=== PATIENT | female | born 1995 | race Caucasian/White ===

== ENCOUNTER 2016-08-23 11:01 | Emergency (ER) | payer BC, OTHER ==
[~2016-08-23] VITALS: Ht 180.3 cm; Wt 133.5 kg
[~2016-08-23 11:01] MED LIST: BCPILLS PO
[2016-08-23 11:10] VITALS: TEMP 36.9; Ht 180.3 cm; Wt 133.5 kg
[2016-08-23] MEDS ORDERED: SODIUM CHLORIDE 0.9% 1000ML 1,000 ML IV ONE (12:30)
[2016-08-23 12:45] LABS: BASO % 0.3 %; BASO ABS # 0.03 K/uL (0-0.2); COMPLETE YES; EOS % 1.9 %; HEMATOCRIT 33.6 % (37-47); IG% 0.2 %; LYMPH % 23.8 %; LYMPH ABS # 2.25 K/uL (1.2-3.4); MEAN CELL VOLUME 70.9 fL (80-100); MEAN CORPUSCULAR HEMOGLOBIN 21.9 pg (25-34); MEAN PLATELET VOLUME 8.7 fL (7.4-10.4); MONO % 7.2 %; NEUT % 66.6 %; PLATELET COUNT 452 K/uL (130-400); RED BLOOD COUNT 4.74 M/uL (4.2-5.4); WHITE BLOOD COUNT 9.46 K/uL (4.8-10.8)
[2016-08-23 13:01] LABS: BUN/CREATININE RATIO 20.6 (10-20); CALCIUM 8.9 mg/dl (8.5-10.1); CREATININE 0.67 mg/dl (0.60-1.20)
--- NOTE | 2016-08-23 13:27 | DIAGNOSTIC IMAGING REPORT ---
CHEST 2 VIEWS ROUTINE CLINICAL HISTORY: syncope, cough COMPARISON STUDY: No previous studies for comparison. FINDINGS: The cardiac and mediastinal contours are normal. There is no evidence of focal pulmonary consolidation. There is no evidence of failure. No pleural effusions are visualized.[ IMPRESSION: No active disease in the chest. Electronically signed by: Roosevelt Wilson M.D. 08/23/2016 1:26 PM Dictated Date/Time: 08/23/2016 1:25 PM
[2016-08-23 13:33] LABS: URINE APPEARANCE CLEAR (CLEAR); URINE BILIRUBIN NEG (NEG); URINE COLOR YELLOW; URINE NITRITE NEG (NEG); URINE PH 6.5 (4.5-7.5); URINE SPECIFIC GRAVITY 1.019 (1.000-1.030); UROBILINOGEN NEG (NEG)
[2016-08-23 13:36] LABS: MANUAL MICROSCOPIC REQUIRED? NO; REVIEW REQ? NO
[2016-08-23 13:55] VITALS: BP 123/67; PULSE 81; O2SAT 100
--- NOTE | 2016-08-23 20:42 | EMERGENCY ROOM VISIT NOTE ---
ED Visit Note First contact with patient: 12:13 Chief Complaint: I passed out. History of Present Illness: Ms. Peacock is a 21-year-old white female who ambulates into the ED complaining of a possible syncopal episode. Patient denies any significant past medical history in reports she's been feeling well over the last few days. Patient reports she was standing up on the bus going to school this morning and had a syncopal episode. She reports just prior to the syncopal episode she noted some increasing tunnellike vision changes as well as hearing changes and then she was on the floor. She reports she had a transient loss of consciousness and when she attempted to stand up had a second syncopal episode. After her second syncopal episode she was offered a chair was sitting in chair and since that time she reports she has been feeling well and is not having any complaints. She denies fevers, chills, sweats, skin eruptions, skin color changes, dizziness , lightheadedness, recent head trauma, visual changes, hearing changes, difficulty speaking, difficulty swallowing, difficulty ambulating/morning body movements, neck pain, back pain, chest pain, shortness of breath, palpitations, previous clots, claudication, cramping, recent surgery/inactivity/extended travel, estrogen and tobacco use, abdominal pain, nausea, vomiting, diarrhea, constipation, rectal bleeding, black/tarry stools, flank pain, urinary symptoms , hematuria, vaginal discharge; she is currently menstruating and reports this is normal duration and intensity, extremity weakness/numbness/tingling. Review of Systems: As noted above in history of present illness. At least body systems were reviewed and found to be negative as noted above. Past Medical History: Patient denies. Current Medications: Patient denies. Allergies to Medications: Patient denies. Social History: Patient is currently University student; patient feels safe in her home environment; she denies tobacco and alcohol use. Physical Examination: Vital Signs: Date Time Temp Pulse Resp B/P Pulse Ox O2 Delivery O2 Flow Rate FiO2 08/23/16 13:55 81 16 123/67 100 Room Air 08/23/16 13:09 96 16 146/81 96 Room Air 08/23/16 12:55 86 18 122/88 86 140/69 100 164/113 08/23/16 11:10 36.9 79 18 128/82 99 Room Air GENERAL: 21-year-old female in no acute distress, nontoxic-appearing, afebrile and hemodynamically stable. NEUROLOGICAL: Awake, alert and oriented to person, place and time. Answering questions appropriately and following commands. Normal gait. Good hand eye coordination. No focal motor sensory deficits. Romberg test negative. Pronator drift test negative. Cranial nerves II through XII grossly intact. Normal rapid all movements of the hands and fingers. Good short-term and long- term recall. SKIN: Warm, dry and pink. No soft tissue eruptions or trauma noted. HEENT: Atraumatic and normocephalic. PERRLA. EOMI without nystagmus. Sclera white and conjunctiva pink. No drainage from naris. No malocclusion. Airway pain. Pharynx is nonerythematous or edematous. Speech normal. No lymphadenopathy. Trachea midline. No jugular venous distention. No carotid bruits. BACK: No tenderness over the bony cervical, thoracic and lumbar spine. No CVA tenderness. THORAX: Lungs sounds are clear to auscultation and equal bilaterally with symmetrical chest wall. No wheezing, rales or rhonchi. No crepitus, tenderness , subcutaneous air or deformities noted. HEART: Regular rate and rhythm. No gallops, rubs or murmurs are appreciated. ABDOMEN: Obese, soft and nontender. Positive bowel sounds in all quadrants. No guarding, rigidity or organomegaly. EXTREMITIES: Moves all extremities well on command and with purpose. All distal neurovascular statuses are intact and equal bilaterally. No calf tenderness or cords. ED Course: Patient is assessed as noted above. Laboratory Testing: Test 08/23/16 12:35 08/23/16 13:10 Range/Units White Blood Count 9.46 4.8-10.8 K/uL Red Blood Count 4.74 4.2-5.4 M/uL Hemoglobin 10.4 12.0-16.0 g/dL Hematocrit 33.6 37-47 % Mean Corpuscular Volume 70.9 80-100 fL Mean Corpuscular Hemoglobin 21.9 25-34 pg Mean Corpuscular Hemoglobin Concent 31.0 32-36 g/dl Platelet Count 452 130-400 K/uL Mean Platelet Volume 8.7 7.4-10.4 fL Neutrophils (%) (Auto) 66.6 % Lymphocytes (%) (Auto) 23.8 % Monocytes (%) (Auto) 7.2 % Eosinophils (%) (Auto) 1.9 % Basophils (%) (Auto) 0.3 % Neutrophils # (Auto) 6.30 1.4-6.5 K/uL Lymphocytes # (Auto) 2.25 1.2-3.4 K/uL Monocytes # (Auto) 0.68 0.11-0.59 K/uL Eosinophils # (Auto) 0.18 0-0.5 K/uL Basophils # (Auto) 0.03 0-0.2 K/uL RDW Standard Deviation 43.1 36.4-46.3 fL RDW Coefficient of Variation 16.6 11.5-14.5 % Immature Granulocyte % (Auto) 0.2 % Immature Granulocyte # (Auto) 0.02 0.00-0.02 K/uL Sodium Level 142 136-145 mmol/L Potassium Level 4.0 3.5-5.1 mmol/L Chloride Level 107 98-107 mmol/L Carbon Dioxide Level 28 21-32 mmol/L Anion Gap 7.0 3-11 mmol/L Blood Urea Nitrogen 14 7-18 mg/dl Creatinine 0.67 0.60-1.20 mg/dl Est Creatinine Clear Calc Drug Dose 199.3 ml/min Estimated GFR () 144.6 Estimated GFR (Non- 124.8 BUN/Creatinine Ratio 20.6 10-20 Random Glucose 88 70-99 mg/dl Calcium Level 8.9 8.5-10.1 mg/dl Total Bilirubin 0.3 0.2-1 mg/dl Direct Bilirubin 0.1 0-0.2 mg/dl Aspartate Amino Transf (AST/SGOT) 11 15-37 U/L Alanine Aminotransferase (ALT/SGPT) 22 12-78 U/L Alkaline Phosphatase 80 45-117 U/L Total Protein 7.5 6.4-8.2 gm/dl Albumin 3.7 3.4-5.0 gm/dl Urine Color YELLOW Urine Appearance CLEAR CLEAR Urine pH 6.5 4.5-7.5 Urine Specific [place] 1.019 1.000-1.030 Urine Protein NEG NEG Urine Glucose (UA) NEG NEG Urine Ketones NEG NEG Urine Occult Blood NEG NEG Urine Nitrite NEG NEG Urine Bilirubin NEG NEG Urine Urobilinogen NEG NEG Urine Leukocyte Esterase NEG NEG Urine Test NEG NEG Chest X-Rays: Were read by myself and the radiologist showing no acute infiltrates, effusions or pneumothorax. Normal heart silhouette and bony anatomy. No previous to compare. EKG: Was read by myself and reviewed with Dr. Gonsales; shows normal sinus rhythm with a ventricular rate of 76 bpm. Left ventricular hypertrophy. No signs appearance preexcitement syndromes. No ST changes indicating ischemia, injury or infarction. Patient was hydrated with normal saline. Patient was reassessed multiple times during her stay in the emergency department. Patient's case was reviewed with Dr. Gonsales; we agreed on diagnostic approach, treatment, disposition and plan. Patient was educated about tonight's findings and instructed on her treatment plan; she verbalizes understanding and agreement with this plan. Clinical Impression: Syncope. Anemia. Decision-Making: Initially my differential diagnosis I considered vasovagal syncope, heart arrhythmia, pulmonary embolism, cardiac myopathy and other causes. Disposition: Patient discharged home in stable condition; prior to departure she was reassessed and subjectively reported she was feeling much better and was not having any symptoms. Plan: Patient was encouraged to use OTC multivitamins with iron for her anemia. Patient was encouraged to stay well-hydrated with increased clear fluids and avoid alcohol use. Patient was encouraged to follow-up with her PCP for recheck and reevaluation of her anemia. Patient was encouraged return the ED for any additional episodes of syncope, black/tarry stools, any abnormal bleeding or any new/concerning symptoms.
== END 2016-08-23 14:25 | disposition home or self-care (01) ==
LOC: C.EDB 11:05
DX: R55 Syncope and collapse (principal); D64.9 Anemia, unspecified